=== PATIENT | male | born 1980 | race Caucasian/White ===

== ENCOUNTER 2017-05-31 10:12 | Emergency (ER) | payer SELFPAY ==
--- NOTE | 2017-05-31 13:45 | Emergency Department Report ---
ED Lower Extremity HPI - General Chief Complaint: Extremity Injury, Lower Stated Complaint: FOOT INJURY Time Seen by Provider: 05/31/17 13:19 Source: patient Mode of arrival: Ambulatory Limitations: No Limitations - History of Present Illness Initial Comments: 36-year-old male past medical history none presents with complaint of pain in left forefoot sole. Patient states that he stepped on a nail at work 3 weeks ago. It penetrated his shoe/boot and he said approximately 1-1-1/2 inches of nail penetrated his foot sole. Patient denies fever chills, no purulent drainage in area. Patient states that when he palpates area of puncture wound it is tender. Is able to ambulate but states that it is uncomfortable. Patient is [place]-speaking which I speak fluently. Patient states he has not had a tetanus vaccine in over 10 years. MD Complaint: foot injury Onset/Timin -: week(s) Injury: Foot: Left (pain in the sole of left foot) Type of Injury: puncture wound (stepped on nail) Severity: moderate Context: stepped on nail Associated Symptoms: ambulatory - Related Data Previous Rx's Medication Instructions Recorded Last Taken Type Ciprofloxacin HCl [Ciprofloxacin 500 mg PO Q12HR #14 tab 05/31/17 Unknown Rx TAB] Ibuprofen [Motrin] 800 mg PO Q8HR PRN #25 tablet 05/31/17 Unknown Rx Sulfamethoxazole/Trimethoprim 1 each PO BID #14 tablet 05/31/17 Unknown Rx [Bactrim DS TAB] Allergies Allergy/AdvReac Type Severity Reaction Status Date / Time No Known Allergies Allergy Unverified 05/31/17 10:27 ED Review of Systems ROS: Stated complaint: FOOT INJURY Other details as noted in HPI Constitutional: denies: chills, fever Eyes: denies: eye pain, eye discharge, vision change ENT: denies: ear pain, throat pain Respiratory: denies: cough, shortness of breath, wheezing Cardiovascular: denies: chest pain, palpitations Endocrine: no symptoms reported Gastrointestinal: denies: abdominal pain, nausea, diarrhea Genitourinary: denies: urgency, dysuria Musculoskeletal: denies: back pain, joint swelling, arthralgia Skin: denies: rash, lesions Neurological: denies: headache, weakness, paresthesias Psychiatric: denies: anxiety, depression Hematological/Lymphatic: denies: easy bleeding, easy bruising ED Past Medical Hx - Past Medical History Previous Medical History?: No - Surgical History Past Surgical History?: No - Medications Home Medications: Home Medications Medication Instructions Recorded Confirmed Last Taken Type Ciprofloxacin HCl [Ciprofloxacin 500 mg PO Q12HR #14 tab 05/31/17 Unknown Rx TAB] Ibuprofen [Motrin] 800 mg PO Q8HR PRN #25 tablet 05/31/17 Unknown Rx Sulfamethoxazole/Trimethoprim 1 each PO BID #14 tablet 05/31/17 Unknown Rx [Bactrim DS TAB] ED Physical Exam - General Limitations: No Limitations General appearance: alert, in no apparent distress - Head Head exam: Present: atraumatic, normocephalic - Eye Eye exam: Present: normal appearance, PERRL, EOMI - ENT ENT exam: Present: mucous membranes moist - Neck Neck exam: Present: normal inspection - Respiratory Respiratory exam: Present: normal lung sounds bilaterally. Absent: respiratory distress - Cardiovascular Cardiovascular Exam: Present: regular rate, normal rhythm. Absent: systolic murmur, diastolic murmur, rubs, gallop - GI/Abdominal GI/Abdominal exam: Present: soft, normal bowel sounds - Rectal Rectal exam: Present: deferred - Extremities Exam Extremities exam: Present: normal inspection - Expanded Lower Extremity Exam Left Ankle exam: Present: normal inspection, full ROM Foot/Toe exam: Present: full ROM, tenderness (on palpation of left foot sole), puncture wound (visible small puncture owund base of left foot sole) Neuro vascular tendon exam: Present: no vascular compromise Gait: Positive: observed and normal 1 - pain on palpation here. Possible early erythema no palpable fluctuance - Back Exam Back exam: Present: normal inspection - Neurological Exam Neurological exam: Present: alert, oriented X3 - Psychiatric Psychiatric exam: Present: normal affect, normal mood - Skin Skin exam: Present: warm, dry, intact, normal color. Absent: rash ED Course Vital Signs 05/31/17 10:25 Temperature 98.4 F Pulse Rate 71 Respiratory 16 Rate Blood Pressure 103/56 O2 Sat by Pulse 100 Oximetry - I & D Left Plantar Foot Type of Procedure: Simple Site: sole of left foot Blade Size: 11 I & D Procedure: betadine prep, sterile drapes applied Progress: Area of puncture wound anesthetized with lidocaine 2% with epinephrine. Good local anesthesia achieved. Small less than half centimeter stab incision made at site of puncture. No purulent drainage from site on deep compression. Covered with Triple Antibiotic ointment, 1 5-0 nylon suture placed. covered with gauze after ED Lower Extremity MDM - Medical Decision Making A/P: Left foot sole puncture wound with nail, left foot pain 1-as there was slightly raised skin above puncture wounds I made a 0.5cm stab incision to rule out any purulent accumulation/abscess. No purulent drainage from area. 1 5-0 suture placed after w/ triple abx and 2x2 gauze, tolerated well. pt to have suture removed in ~ 10 days 2-tdap updated today. X-ray left foot unremarkable 3-will give pt course of ciprofloxacin and bactrim x1 week 4- Motrin when necessary for pain 5- I advised patient to follow-up with podiatry and to return to the ED for any significant erythema or pus drainage increased pain at site. Patient stated he understood my instructions Critical care attestation.: If time is entered above; I have spent that time in minutes in the direct care of this critically ill patient, excluding procedure time. ED Disposition Clinical Impression: Puncture wound of foot, left Qualifiers: Encounter type: initial encounter Qualified Code(s): S91.332A - Puncture wound without foreign body, left foot, initial encounter Disposition: TO HOME OR SELFCARE Is pt being admited?: No Does the pt Need Aspirin: No Condition: Stable Instructions: Diphtheria/Tetanus Vaccine (Injection), Suture Care (ED), Puncture Wound (ED), Acute Wound Care (ED) Additional Instructions: Sutures to be removed in approximately 10 days. Liannetos se tienien que quittar en approximadamente 10 morfin Prescriptions: Ciprofloxacin HCl [Ciprofloxacin TAB] 500 mg PO Q12HR #14 tab Ibuprofen [Motrin] 800 mg PO Q8HR PRN #25 tablet PRN Reason: Pain Sulfamethoxazole/Trimethoprim [Bactrim DS TAB] 1 each PO BID #14 tablet Referrals: [facility] [Outside] - 3-5 Days [facility] [Outside] - 3-5 Days ALENA BURDEN DPM [Staff Physician] - 3-5 Days Forms: Work/School Release Form(ED) Time of Disposition: 15:57 Print Language: TURKMEN
[2017-05-31] MEDS ORDERED: XYLOCAINE 2%/EPI 1:100,000 INFILTRATI ONE (14:04)
[2017-05-31] MEDS ORDERED: TRIPLE ANTIBIOTIC TP ONE (14:05)
[2017-05-31] MEDS ORDERED: MOTRIN PO ONE (14:07)
[2017-05-31] MEDS ORDERED: NORCO 5/325 PO ONE (14:07)
[2017-05-31] MEDS ORDERED: ZOFRAN ODT PO ONE (14:09)
[2017-05-31] MEDS ORDERED: BOOSTRIX IM ONE (16:00)
[2017-05-31 23:52] VITALS: BP 110/65
--- NOTE | 2017-06-01 09:56 | XRay Report ---
LEFT FOOT, 2 views: History: Left foot pain, stepped on a nail. The bony architecture is intact. Bony alignment is normal. No soft tissue abnormalities are seen. A large plantar spur is identified. No radiopaque foreign body is detected on x-ray. IMPRESSION: No acute osseous injury. No soft tissue foreign body visualized. Plantar spur.
== END 2017-05-31 16:00 | disposition home or self-care (01) ==
LOC: ED 10:12
DX: S91.332A Puncture wound without foreign body, left foot, initial encounter (principal); W22.8XXA Striking against or struck by other objects, initial encounter; Y93.9 Activity, unspecified; Y99.9 Unspecified external cause status; Y92.89 Other specified places as the place of occurrence of the external cause
CPT/HCPCS: 90471; 90715; A6250; Q0162